=== PATIENT | male | born 1940 | race Caucasian/White ===

== ENCOUNTER 2019-12-06 10:54 | Outpatient (CLI) | payer MEDICARE, OTHER, SELFPAY ==
--- NOTE | 2019-12-06 | ECG_ITS ---
Measurements Intervals [place] Rate: 75 P: 60 CA: 199 QRS: -27 QRSD: 118 T: 48 QT: 397 QTc: 445 Interpretive Statements SINUS RHYTHM INTRAVENTRICULAR CONDUCTION DELAY CANNOT RULE OUT SEPTAL INFARCT, AGE INDETERMINATE ABNORMAL ECG Electronically Signed On 12-06-2019 12:20:47 CDT by Reno Sotelo D.O.
[2019-12-06 11:44] LABS: Hemoglobin 15.9 g/dL (14.0-18.0)
[2019-12-06 11:55] LABS: Albumin Level 4.2 g/dL (3.5-5.1); Estimated Glomerular Filt Rate > 60
== END 2019-12-06 10:55 | disposition home or self-care (01) ==
PROVIDERS: PCP Internal Medicine; Visit Provider Orthopaedic Surgery
DX: M19.012 Primary osteoarthritis, left shoulder (principal); I10 Essential (primary) hypertension; I51.89 Other ill-defined heart diseases; Z01.818 Encounter for other preprocedural examination
CPT/HCPCS: 36415; 82040; 82565; 85014; 85018; 93005